=== PATIENT | female | born 1985 | race Caucasian/White ===

== ENCOUNTER 2020-09-14 13:05 | Observation (INO) | payer OTHER ==
[~2020-09-14] VITALS: Ht 160 cm; Wt 75.3 kg
[2020-09-14] MEDS ORDERED: PREN-217 PO (13:21)
[2020-09-14 13:22] VITALS: BP 112/71
== END 2020-09-14 14:30 | disposition home or self-care (01) ==
LOC: 4S 13:05
PROVIDERS: ADMIT Obstetrics & Gynecology; ATTEND Obstetrics & Gynecology
DX: O26.853 Spotting complicating pregnancy, third trimester (principal); O62.9 Abnormality of forces of labor, unspecified; Z3A.37 37 weeks gestation of pregnancy
CPT/HCPCS: 59025; 81001; 99219

== ENCOUNTER 2020-09-24 22:38 | Inpatient (IN) | payer OTHER ==
[~2020-09-24] VITALS: Ht 160 cm; Wt 75.7 kg
[~2020-09-24 22:38] MED LIST: PREN-217 PO
[2020-09-25] MEDS ORDERED: METOCLOPRAMIDE HCL 5 MG/ML 2 ML VIAL IVP ONE
[2020-09-25] MEDS ORDERED: CITRIC ACID/SODIUM CITRATE 30 ML SOLUTION UDCUP PO ONE
[2020-09-25] MEDS ORDERED: RINGERS SOLUTION,LACTATED 1,000 ML IV ONE
[2020-09-25 00:14] VITALS: BP 125/75
[2020-09-25 01:03] LABS: BASOPHILS % (AUTO) 0.3 % (0.0-2.0); EOSINOPHILS % (AUTO) 0.3 % (1.0-6.0); HEMATOCRIT 35.5 % (36-46); HEMOGLOBIN 12.2 g/dL (12.0-16.0); LYMPHOCYTES # (AUTO) 1.5 K/uL (1.0-4.8); LYMPHOCYTES % (AUTO) 16.7 % (22.0-44.0); MEAN CORPUSCULAR HGB CONC 34.3 G/dL (31.0-37.0); MEAN CORPUSCULAR VOLUME 94 fL (80-100); MONOCYTES # (AUTO) 0.8 K/uL (0.1-1.0); MONOCYTES % (AUTO) 9.1 % (2.0-9.0); NEUTROPHILS # (AUTO) 6.8 K/uL (1.8-7.7); NEUTROPHILS % (AUTO) 73.6 % (40.0-70.0); PLATELET COUNT (AUTO)-OB 120 K/uL (150-450); RED CELL DISTRIBUTION WIDTH 13.1 % (11.5-14.5)
[2020-09-25 01:55] LABS: COVID AG,FIA SOURCE NASOPHARYNGEAL
[2020-09-25] MEDS ORDERED: FentaNYL CITRATE PF 100 MCG/2 ML VIAL ONE (06:58)
[2020-09-25] MEDS ORDERED: MORPHINE SULFATE/PF 1 MG/ML 10 ML AMP ONE (06:58)
[2020-09-25] MEDS ORDERED: BUPIVACAINE HCL/DEX-WATER/PF 0.75% 2 ML AMP ITH ONE (06:59)
[2020-09-25] MEDS ORDERED: ACETAMINOPHEN 1000 MG/ISO-OSM 100 ML IV ONE (06:59)
[2020-09-25] MEDS ORDERED: NALBUPHINE HCL 10 MG/ML VIAL IVP PRN ×2 (07:00)
[2020-09-25] MEDS ORDERED: MORPHINE SULFATE 10 MG/ML SYRINGE IVP PRN (07:00)
[2020-09-25] MEDS ORDERED: ONDANSETRON HCL 4 MG/2 ML VIAL IVP PRN ×2 (07:00→07:30)
[2020-09-25] MEDS ORDERED: DiphenhydrAMINE HCL 50 MG/ML VIAL IVP PRN (07:00)
[2020-09-25] MEDS ORDERED: NALOXONE HCL 0.4 MG/ML VIAL IVP PRN (07:00)
[2020-09-25] MEDS ORDERED: FentaNYL CITRATE PF 100 MCG/2 ML VIAL IVP PRN ×2 (07:00→07:30)
[2020-09-25] MEDS ORDERED: OXYGEN THERAPY IH SCH ×2 (08:00)
[2020-09-25] MEDS ORDERED: ACETAMINOPHEN/CODEINE 300-30 MG TABLET PO PRN ×2 (08:15)
[2020-09-25] MEDS ORDERED: LANOLIN 7 GM OINTMENT TP PRN (08:15)
[2020-09-25] MEDS: DEXTROSE 5%-0.45% SODIUM CHL 1,000 ML IV SCH ×4 (10:38→22:45)
[2020-09-25] MEDS: ACETAMINOPHEN 1000 MG/ISO-OSM 100 ML IV SCH ×2 (14:51→22:43)
[2020-09-26] MEDS: IBUPROFEN 800 MG TABLET PO SCH ×2 (04:51→18:16)
[2020-09-26] MEDS: MAGNESIUM HYDROXIDE SUSPENSION 30 ML UDCUP PO SCH (21:11)
[2020-09-27] MEDS: IBUPROFEN 800 MG TABLET PO SCH ×5 (00:19→22:29)
[2020-09-27] MEDS: MAGNESIUM HYDROXIDE SUSPENSION 30 ML UDCUP PO SCH ×2 (09:37→22:29)
[2020-09-28] MEDS: IBUPROFEN 800 MG TABLET PO SCH ×2 (05:00→10:41)
[2020-09-28] MEDS ORDERED: IBUP-2071 PO (09:35)
[2020-09-28] MEDS: MAGNESIUM HYDROXIDE SUSPENSION 30 ML UDCUP PO SCH (09:47)
== END 2020-09-28 11:00 | disposition home or self-care (01) | DRG 788 ==
LOC: OBSVTOIN 22:38 → 4S 22:38
PROVIDERS: ADMIT Obstetrics & Gynecology; ATTEND Obstetrics & Gynecology
PROC: 10D00Z1 Extraction of Products of Conception, Low, Open Approach (ICD-10-PCS; principal; 2020-09-25)
DX: O34.211 Maternal care for low transverse scar from previous cesarean delivery (principal); O99.824 Streptococcus B carrier state complicating childbirth; Z20.822 Contact with and (suspected) exposure to COVID-19; Z3A.39 39 weeks gestation of pregnancy; Z37.0 Single live birth
CPT/HCPCS: 85025; 86850; 86900; 86901; 86923; 87081; 87426; J0131; J2405; J2765; J3010; J3490; J7120